=== PATIENT | male | born 1980 | race Caucasian/White ===

== ENCOUNTER 2020-02-23 06:45 | Outpatient (NON) | payer OTHER, SELFPAY ==
[2020-02-23 19:00] LABS: SARS-CoV-2 RNA PCR Positive
== END 2020-02-23 06:46 ==
PROVIDERS: PCP Internal Medicine; Visit Provider Nurse Practitioner
DX: U07.1 COVID-19 (principal)
CPT/HCPCS: 87635; C9803; U0003

== ENCOUNTER 2020-06-06 09:35 | Outpatient (CLI) | payer OTHER, SELFPAY ==
[2020-06-06 09:46] LABS: Basophils Absolute Auto 0.1 K/mm3 (0.0-0.1); Basophils Percent Auto 0.7 % (0.2-1.2); Eosinophils Absolute Auto 0.3 K/mm3 (0-0.3); Eosinophils Percent Auto 3.6 % (0-4.4); Hematocrit 45.2 % (42.0-52.0); Hemoglobin 14.8 g/dL (14.0-18.0); Immature Granulocyte Absolute 0.03 K/mm3 (0.00-0.031); Immature Granulocyte Percent A 0.4 % (0-0.5); Lymphocytes Absolute Auto 3.05 K/mm3 (0.9-3.2); Lymphocytes Percent Auto 42.2 % (18.3-44.2); Mean Corpuscular HGB Conc 32.7 g/dl (32-36); Mean Corpuscular Hemoglobin 29.7 pg (26-34); Mean Corpuscular Volume 90.8 fl (80-100); Mean Platelet Volume 8.4 fl (7.4-10.4); Monocytes Absolute Auto 0.4 K/mm3 (0.1-0.6); Monocytes Percent Auto 5.7 % (2.6-8.5); Neutrophils Absolute Auto 3.4 K/mm3 (1.3-6.7); Neutrophils Percent Auto 47.4 % (45.5-73.1); Platelet Count Result 224 k/mm3 (150-375); Red Blood Count 4.98 M/mm3 (4.6-6.20); Red Cell Distribution Width 13.1 % (11.5-14.5); White Blood Count 7.2 K/mm3 (4.5-10.0)
[2020-06-06 09:58] LABS: Alanine Aminotransferase 36 U/L (4-50); Albumin Level 4.9 g/dL (3.5-5.1); Alkaline Phosphatase 92 U/L (38-126); Anion Gap 10 mmol/L (8-16); Aspartate Amino Transferase 31 U/L (17-59); Bilirubin,Total 0.4 mg/dL (0.2-1.3); Blood Urea Nitrogen 14 mg/dL (9-20); Calcium 9.1 mg/dL (8.4-10.2); Carbon Dioxide 29 mmol/L (22-30); Chloride 101 mmol/L (98-107); Cholesterol 201 mg/dL (0-200); Estimated Glomerular Filt Rate > 60; Glucose 106 mg/dL (75-110); HDL Direct 29 mg/dL; Potassium 4.4 mmol/L (3.4-5.0); Sodium 140 mmol/L (137-145); Triglycerides 351 mg/dL (<150)
[2020-06-06 10:09] LABS: LDL Cholesterol Direct 121 mg/dL
== END 2020-06-06 09:36 | disposition home or self-care (01) ==
PROVIDERS: Family Provider Internal Medicine; PCP Internal Medicine; Visit Provider Internal Medicine
DX: Z13.228 Encounter for screening for other metabolic disorders (principal); Z13.220 Encounter for screening for lipoid disorders
CPT/HCPCS: 36415; 80053; 80061; 85025

== ENCOUNTER 2020-07-18 21:25 | Inpatient (IN) | payer OTHER, SELFPAY ==
[2020-07-18] VITALS (22 sets, daily range): BP systolic 109–172; BP diastolic 76–151; PULSE 105–177; RESP 12–24; O2SAT 97–100
--- NOTE | ~2020-07-18 | XR_ITS ---
EXAMINATION: XR chest 1V portable 07/18/2020 22:03 INDICATION: Tachycardia. PROCEDURE: AP portable chest COMPARISON: No prior studies for comparison. FINDINGS: The lungs are clear. The cardiomediastinal silhouette is within normal limits. There are no pleural effusions. There is no pneumothorax suspected. IMPRESSION: 1: NO ACUTE CARDIOPULMONARY DISEASE. Reviewed, dictated and finalized at location A. [employer]
--- NOTE | 2020-07-18 21:33 | ECG_ITS ---
Measurements Intervals [place] Rate: 155 P: [place]: 0 QRS: 78 QRSD: 105 T: 10 QT: 276 QTc: 443 Interpretive Statements ATRIAL FIBRILLATION WITH RAPID VENTRICULAR RESPONSE BORDERLINE ST-T WAVE ABNORMALITY- INFERIOR LEADS BASELINE ARTIFACT- I, II, V1 ABNORMAL ECG Electronically Signed On 07-19-2020 7:13:18 GRIPPER ATTACHER by Memo Valencia D.O.
--- NOTE | 2020-07-18 21:41 | ED.ARRPALP ---
HPI - Arrhythmia/Palpitations General Chief Complaint: Arrhythmia/Palpitations Stated Complaint: high HR 160 Time Seen by Provider: 07/18/20 21:41 History of Present Illness HPI narrative: 39 yo with no active medical problems presents to the ED for palpitations. About 90 minutes ago his heart suddenlyHe started racing. His apple watch told him he was in atrial fibrillation. No CP, SOB, dizziness. He denies drug use. Related Data Home Medications Medication Instructions Recorded Confirmed No Home Medications 06/13/20 06/13/20 Allergies Allergy/AdvReac Type Severity Reaction Status Date / Time No Known Allergies Allergy Unverified 06/13/20 10:06 Review of Systems Review of Systems: All systems reviewed & are unremarkable except as noted in HPI and below Constitutional: Constitutional: Denies chills and Denies fever(s) Cardiovascular: Cardiovascular: Denies chest pain Respiratory: Respiratory: Denies dyspnea Gastrointestinal: Gastrointestinal: Denies abdominal pain and Denies nausea Neurologic: Denies dizziness, Denies syncope and Denies weakness [facility] Surgical History Surgical History H/O left knee surgery (~05/05/19) H/O vasectomy (~2017) Family History Family History Sibling Hypertension Grandparent Hypertension Social History Social History Smoking status: Never smoker Second hand tobacco smoke exposure: No Alcohol intake: never Substance use: never Substance use type: does not use Gender identity (if verbalized by the patient): Male Spiritual care concerns: No Exam Const: General: healthy appearing, no acute distress and alert Orientation/consciousness: patient oriented x3 HENMT: Head: normal to inspection Neck: Neck: normal visual inspection and no lymphadenopathy Chest: Chest palpation & inspection: no tenderness Resp: Effort & Inspection: normal respiratory effort Auscultation: clear to auscultation bilaterally, no rales, no rhonchi and no wheezes Cardio: Jugular venous distension: no JVD Rate: tachycardic Rhythm: abnormal rhythm irregularly irregular Heart sounds: no murmurs GI: Inspection: non-distended GI Palp: Yes Soft to palpation and No Tenderness to palpation present (GI) Skin: General skin exam: normal color Neuro: General: patient oriented x3, moves all extremities, no focal motor deficits and CN's II-XI intact bilaterally Speech: normal speech Extrem: General: no edema Psych: Appearance: well kempt Affect: normal affect Course Vital Signs Vital signs: Vital Signs Pulse Rate 150 H 07/18/20 21:29 Respiratory Rate 12 07/18/20 21:29 Blood Pressure 136/99 H 07/18/20 21:29 Pulse Oximetry 98 07/18/20 21:29 Temperature 36.3 C L 07/19/20 04:00 Pulse Rate 99 07/19/20 04:09 Respiratory Rate 18 07/19/20 04:00 Blood Pressure 139/78 07/19/20 04:00 Pulse Oximetry 100 07/19/20 04:00 MDM - Arrhythmia/Palpitations MDM Narrative Medical decision making narrative: He had known time of onset, so I was planning to try and get him to convert to sinus and arrange outpatient followup. He failed to convert with amiodarone and metoprolol. I discussed the case with Dr. Ladd. He will admit. Differential Diagnosis Differential diagnosis: Likely artial fibrillation Medical Records Attestation: I reviewed the patient's medical records. Lab Data Attestation: I reviewed the patient's lab results. Result diagrams: 07/18/20 21:44 07/18/20 21:44 Labs: Lab Results 07/18/20 07/18/20 07/18/20 Range/Units 21:44 21:44 21:44 WBC 10.4 H (4.5-10.0) K/mm3 RBC 5.24 (4.6-6.20) M/mm3 Hgb 15.7 (14.0-18.0) g/dL Hct 47.2 (42.0-52.0) % MCV 90.1 (80-100) fl MCH 30.0 (26-34) pg MCHC 33.3 (32-36) g/dl RDW 13
[2020-07-18 21:49] LABS: Basophils Absolute Auto 0.1 K/mm3 (0.0-0.1); Basophils Percent Auto 0.5 % (0.2-1.2); Eosinophils Absolute Auto 0.4 K/mm3 (0-0.3); Eosinophils Percent Auto 3.5 % (0-4.4); Hematocrit 47.2 % (42.0-52.0); Hemoglobin 15.7 g/dL (14.0-18.0); Immature Granulocyte Absolute 0.04 K/mm3 (0.00-0.031); Immature Granulocyte Percent A 0.4 % (0-0.5); Lymphocytes Absolute Auto 4.41 K/mm3 (0.9-3.2); Lymphocytes Percent Auto 42.3 % (18.3-44.2); Mean Corpuscular HGB Conc 33.3 g/dl (32-36); Mean Corpuscular Volume 90.1 fl (80-100); Mean Platelet Volume 8.9 fl (7.4-10.4); Monocytes Absolute Auto 0.7 K/mm3 (0.1-0.6); Neutrophils Absolute Auto 4.8 K/mm3 (1.3-6.7); Neutrophils Percent Auto 46.3 % (45.5-73.1); Platelet Count Result 275 k/mm3 (150-375); Red Blood Count 5.24 M/mm3 (4.6-6.20); Red Cell Distribution Width 13.1 % (11.5-14.5); White Blood Count 10.4 K/mm3 (4.5-10.0)
[2020-07-18] MEDS: AMIODARONE 150 MG/D5W 100 ML 150 MG/100 ML BAG 600 MG IV CONT (21:59)
[2020-07-18] MEDS: LORazepam INJ (*CRX) 2 MG/ML VIAL 0.5 MG IV PUSH (22:01)
[2020-07-18 22:04] LABS: Anion Gap 11 mmol/L (8-16); Blood Urea Nitrogen 17 mg/dL (9-20); Calcium 9.6 mg/dL (8.4-10.2); Carbon Dioxide 30 mmol/L (22-30); Chloride 102 mmol/L (98-107); Estimated CRCL calculation 92 ml/min; Estimated Glomerular Filt Rate > 60; Glucose 107 mg/dL (75-110); Sodium 143 mmol/L (137-145)
[2020-07-18 22:16] LABS: Troponin I < 0.012 ng/mL (0.000-0.034)
[2020-07-18 22:21] LABS: INR 0.9; Prothrombin Time 12.6 Seconds (11.1-14.7)
[2020-07-18 22:22] LABS: Partial Thromboplastin Time 30.7 SECONDS (22.3-36.8)
[2020-07-18] MEDS: AMIODARONE 360 MG/D5W 200 ML 360 MG/200 ML BAG 33.33 MG IV CONT (22:22)
[2020-07-18] MEDS: METOPROLOL TARTRATE INJ 5 MG/5 ML VIAL IV PUSH (23:06)
[2020-07-19] VITALS (32 sets, daily range): BP systolic 112–139; BP diastolic 74–96; PULSE 63–129; RESP 14–24; TEMP 36.2–36.9; O2SAT 93–100; BMI 32.5
[2020-07-19 01:54] LABS: Troponin I < 0.012 ng/mL (0.000-0.034)
[2020-07-19 03:57] LABS: Troponin I < 0.012 ng/mL (0.000-0.034)
[2020-07-19] MEDS: AMIODARONE 360 MG/D5W 200 ML 360 MG/200 ML BAG 16.67 MG IV CONT (04:09)
--- NOTE | 2020-07-19 04:27 | ADMGEN ---
This patient, Brock Ybarra, was admitted to IMU Room 212-01 at 0220 from the Emergency Department. Report given by BIRGIT Hutchinson. Patient/family oriented to hospital policies and general routines including ID bracelet, bed and alarms, visiting hours, pain management, procedures, bathroom and other care routines, personal items, smoking policy, room service/diet, and visiting hours. Information on how to activate the Rapid Response Team has been discussed. Patient/Family are encouraged to report perceived risks to care and to ask questions if they do not understand what they are told or what they should do.
--- NOTE | 2020-07-19 10:57 | PM.CNCAR ---
History of Present Illness History of Present Illness Consult date/time: 07/19/20 10:57 Date of consult: 07/19/2020 Reason for consult: Requesting physician: Chief complaint: HPI: Reason For Visit: Atrial fibrillation with RVR Review of Systems Review of Systems: Narrative: General: Negative for fever, chills, fatigue Psychological: Negative for anxiety, depression Ophthalmic: negative for loss of vision ENT: Negative for epistaxis, headaches Allergy and immunology: Negative for hives, nasal congestion Hematologic and lymphatic: Negative for overt bleeding problems Endocrine: Negative for hot flashes, palpitations Respiratory: Negative for cough, hemoptysis Cardiovascular: Negative for chest pain, shortness of breath, leg swelling, palpitations, dizziness, syncope Gastrointestinal: Negative for abdominal pain, nausea, vomiting, hematochezia Musculoskeletal: Negative for myalgia, joint pains Neurological: Negative for weakness Dermatological: Negative for rash, skin discoloration PMFSH Surgical History Surgical History H/O left knee surgery (~05/05/19) H/O vasectomy (~2017) Family History Family History Sibling Hypertension Grandparent Hypertension Social History Social History Smoking status: Never smoker Second hand tobacco smoke exposure: No Alcohol intake: never Substance use: never Substance use type: does not use Gender identity (if verbalized by the patient): Male Spiritual care concerns: No Meds Home Medications and Allergies Home Medications Medication Instructions Recorded Confirmed Type No Home Medications 06/13/20 07/19/20 History Allergies Allergy/AdvReac Type Severity Reaction Status Date / Time No Known Allergies Allergy Unverified 07/19/20 05:55 Vital Signs Vital Signs - 24 hr 07/18/20 21:29 07/18/20 21:38 07/18/20 21:40 Temperature Pulse Rate 150 H 175 H 177 H Respiratory Rate 12 16 21 H Blood Pressure 136/99 H Pulse Oximetry 98 100 98 07/18/20 21:41 07/18/20 21:42 07/18/20 21:45 Temperature Pulse Rate 155 H 174 H 157 H Respiratory Rate 22 H 23 H 18 Blood Pressure 144/122 H 172/151 H Pulse Oximetry 97 100 99 07/18/20 21:46 07/18/20 21:48 07/18/20 21:59 Temperature Pulse Rate 160 H 165 H 171 H Respiratory Rate 24 H 21 H Blood Pressure 158/120 H 136/99 H 136/99 H Pulse Oximetry 99 97 07/18/20 22:08 07/18/20 22:15 07/18/20 22:22 Temperature Pulse Rate 132 H 160 H 148 H Respiratory Rate 20 22 H Blood Pressure 133/103 H Pulse Oximetry 98 98 07/18/20 22:35 07/18/20 22:46 07/18/20 22:47 Temperature Pulse Rate 150 H 149 H 149 H Respiratory Rate 17 20 20 Blood Pressure 141/82 H Pulse Oximetry 97 98 97 07/18/20 23:06 07/18/20 23:08 07/18/20 23:15 Temperature Pulse Rate 125 H 124 H 115 H Respiratory Rate 19 22 H Blood Pressure Pulse Oximetry 98 97 07/18/20 23:16 07/18/20 23:30 07/18/20 23:31 Temperature Pulse Rate 105 H 114 H 120 H Respiratory Rate 21 H 18 19 Blood Pressure 109/76 122/83 Pulse Oximetry 98 99 98 07/18/20 23:45 07/19/20 00:00 07/19/20 00:01 Temperature Pulse Rate 112 H 118 H 113 H Respiratory Rate 16 16 21 H Blood Pressure 127/91 H Pulse Oximetry 99 99 98 07/19/20 00:15 07/19/20 00:16 07/19/20 00:36 Temperature Pulse Rate 116 H 117 H 128 H Respiratory Rate 16 20 20 Blood Pressure 112/74 Pulse Oximetry 99 98 98 07/19/20 00:45 07/19/20 00:46 07/19/20 01:11 Temperature Pulse Rate 104 H 120 H 116 H Respiratory Rate 18 20 20 Blood Pressure 127/77 Pulse Oximetry 97 99 98 07/19/20 01:30 07/19/20 01:31 07/19/20 02:03 Temperature Pulse Rate 126 H 107 H Respiratory Rate 14 24 H 16 Blood Pressure 113/82 112/80 Pulse Oximetry 99 98 93 07/19/20 02:26 07/19/20 0
--- NOTE | 2020-07-19 11:00 | PM.IMHP ---
H&P: HPI History of Present Illness Date/Time: 07/19/20 11:00 Date of service: 07/19/2020 Chief complaint: HPI: 39-year-old male with no known prior cardiac history presented to [facility] on 07/18/2020 complains of palpitations. Patient states that he had sudden onset of palpitations last night between 730-830 p.m. patient denied chest pain, shortness of breath, syncope. He had mild dizziness during the episode of palpitations. In the ER, his EKG on my personal evaluation showed atrial fibrillation with RVR, heart rate 155 beats per minute. Serial troponins are negative. Chest x-ray unremarkable. Patient has been initiated on amiodarone, and currently he remains in atrial fibrillation with ventricular rate in 120s. Chief Complaint: Palpitations Narrative: Brock Ybarra is a 39 year old male Review of Systems Review of Systems: Narrative: General: Negative for fever, chills, fatigue Psychological: Negative for anxiety, depression Ophthalmic: negative for loss of vision ENT: Negative for epistaxis, headaches Allergy and immunology: Negative for hives, nasal congestion Hematologic and lymphatic: Negative for overt bleeding problems Endocrine: Negative for hot flashes, palpitations Respiratory: Negative for cough, hemoptysis Cardiovascular: Negative for chest pain, positive for palpitations Gastrointestinal: Negative for abdominal pain, nausea, vomiting, hematochezia Musculoskeletal: Negative for myalgia, joint pains Neurological: Negative for weakness Dermatological: Negative for rash, skin discoloration PMFSH Surgical History Surgical History H/O left knee surgery (~05/05/19) H/O vasectomy (~2017) Family History Family History Sibling Hypertension Grandparent Hypertension Social History Social History Smoking status: Never smoker Second hand tobacco smoke exposure: No Alcohol intake: never Substance use: never Substance use type: does not use Gender identity (if verbalized by the patient): Male Spiritual care concerns: No Meds Home Medications and Allergies Home Medications Medication Instructions Recorded Confirmed Type No Home Medications 06/13/20 07/19/20 History Allergies Allergy/AdvReac Type Severity Reaction Status Date / Time No Known Allergies Allergy Unverified 07/19/20 05:55 Vital Signs Vital Signs - 24 hr 07/18/20 21:29 07/18/20 21:38 07/18/20 21:40 Temperature Pulse Rate 150 H 175 H 177 H Respiratory Rate 12 16 21 H Blood Pressure 136/99 H Pulse Oximetry 98 100 98 07/18/20 21:41 07/18/20 21:42 07/18/20 21:45 Temperature Pulse Rate 155 H 174 H 157 H Respiratory Rate 22 H 23 H 18 Blood Pressure 144/122 H 172/151 H Pulse Oximetry 97 100 99 07/18/20 21:46 07/18/20 21:48 07/18/20 21:59 Temperature Pulse Rate 160 H 165 H 171 H Respiratory Rate 24 H 21 H Blood Pressure 158/120 H 136/99 H 136/99 H Pulse Oximetry 99 97 07/18/20 22:08 07/18/20 22:15 07/18/20 22:22 Temperature Pulse Rate 132 H 160 H 148 H Respiratory Rate 20 22 H Blood Pressure 133/103 H Pulse Oximetry 98 98 07/18/20 22:35 07/18/20 22:46 07/18/20 22:47 Temperature Pulse Rate 150 H 149 H 149 H Respiratory Rate 17 20 20 Blood Pressure 141/82 H Pulse Oximetry 97 98 97 07/18/20 23:06 07/18/20 23:08 07/18/20 23:15 Temperature Pulse Rate 125 H 124 H 115 H Respiratory Rate 19 22 H Blood Pressure Pulse Oximetry 98 97 07/18/20 23:16 07/18/20 23:30 07/18/20 23:31 Temperature Pulse Rate 105 H 114 H 120 H Respiratory Rate 21 H 18 19 Blood Pressure 109/76 122/83 Pulse Oximetry 98 99 98 07/18/20 23:45 07/19/20 00:00 07/19/20 00:01 Temperature Pulse Rate 112 H 118 H 113 H Respiratory Rate 16 16 21 H Blood Pressure 127/91 H Pulse Oximetry 99 99 98 0
--- NOTE | 2020-07-19 11:25 | WPDMODSED ---
Moderate Sedation Note-Pt Data Patient Data Allergies Allergy/AdvReac Type Severity Reaction Status Date / Time No Known Allergies Allergy Unverified 07/19/20 05:55 Home Medications Medication Instructions Recorded Confirmed Type No Home Medications 06/13/20 07/19/20 History Current Medications: Active Medications Amiodarone HCl/Dextrose (Nexterone 360 Mg/D5w 200 Ml) 360 mg in 200 mls @ 16.667 mls/hr IV CONT .Q12H BASSEM Last Admin: 07/19/20 04:09 Dose: 0.5 mg/min, 16.67 mls/hr Documented by: Sedation/Anesthesia: No previous sedation/anesthesia problems (including family history). [facility] Surgical History Surgical History H/O left knee surgery (~05/05/19) H/O vasectomy (~2017) Family History Family History Sibling Hypertension Grandparent Hypertension Social History Social History Smoking status: Never smoker Second hand tobacco smoke exposure: No Alcohol intake: never Substance use: never Substance use type: does not use Gender identity (if verbalized by the patient): Male Spiritual care concerns: No Mod Sed Physical Exam Physical Exam Pre Procedural Exam: Normal: Airway Hours since solid foods: 10 Hours since liquid intake: 10 Internal Medicine - PN: Obj Da Vital Signs Vital Signs: Vital Signs - 24 hr 07/18/20 21:29 07/18/20 21:38 07/18/20 21:40 Temperature Pulse Rate 150 H 175 H 177 H Respiratory Rate 12 16 21 H Blood Pressure 136/99 H Pulse Oximetry 98 100 98 07/18/20 21:41 07/18/20 21:42 07/18/20 21:45 Temperature Pulse Rate 155 H 174 H 157 H Respiratory Rate 22 H 23 H 18 Blood Pressure 144/122 H 172/151 H Pulse Oximetry 97 100 99 07/18/20 21:46 07/18/20 21:48 07/18/20 21:59 Temperature Pulse Rate 160 H 165 H 171 H Respiratory Rate 24 H 21 H Blood Pressure 158/120 H 136/99 H 136/99 H Pulse Oximetry 99 97 07/18/20 22:08 07/18/20 22:15 07/18/20 22:22 Temperature Pulse Rate 132 H 160 H 148 H Respiratory Rate 20 22 H Blood Pressure 133/103 H Pulse Oximetry 98 98 07/18/20 22:35 07/18/20 22:46 07/18/20 22:47 Temperature Pulse Rate 150 H 149 H 149 H Respiratory Rate 17 20 20 Blood Pressure 141/82 H Pulse Oximetry 97 98 97 07/18/20 23:06 07/18/20 23:08 07/18/20 23:15 Temperature Pulse Rate 125 H 124 H 115 H Respiratory Rate 19 22 H Blood Pressure Pulse Oximetry 98 97 07/18/20 23:16 07/18/20 23:30 07/18/20 23:31 Temperature Pulse Rate 105 H 114 H 120 H Respiratory Rate 21 H 18 19 Blood Pressure 109/76 122/83 Pulse Oximetry 98 99 98 07/18/20 23:45 07/19/20 00:00 07/19/20 00:01 Temperature Pulse Rate 112 H 118 H 113 H Respiratory Rate 16 16 21 H Blood Pressure 127/91 H Pulse Oximetry 99 99 98 07/19/20 00:15 07/19/20 00:16 07/19/20 00:36 Temperature Pulse Rate 116 H 117 H 128 H Respiratory Rate 16 20 20 Blood Pressure 112/74 Pulse Oximetry 99 98 98 07/19/20 00:45 07/19/20 00:46 07/19/20 01:11 Temperature Pulse Rate 104 H 120 H 116 H Respiratory Rate 18 20 20 Blood Pressure 127/77 Pulse Oximetry 97 99 98 07/19/20 01:30 07/19/20 01:31 07/19/20 02:03 Temperature Pulse Rate 126 H 107 H Respiratory Rate 14 24 H 16 Blood Pressure 113/82 112/80 Pulse Oximetry 99 98 93 07/19/20 02:26 07/19/20 02:30 07/19/20 04:00 Temperature 36.3 C L 36.3 C L Pulse Rate 114 H 63 99 Respiratory Rate 18 18 Blood Pressure 139/87 139/78 Pulse Oximetry 100 100 07/19/20 04:08 07/19/20 04:09 07/19/20 05:51 Temperature Pulse Rate 128 H 99 101 H Respiratory Rate 18 Blood Pressure Pulse Oximetry 99 07/19/20 06:00 07/19/20 08:00 07/19/20 08:16 Temperature 36.4 C L Pulse Rate 99 124 H 120 H Respiratory Rate 21 H Blood Pressure 139/78 Pulse Oximetry 100 07/19/20 10:00 Temperature
[2020-07-19] MEDS: ENOXAPARIN 120 MG/0.8 ML SYRINGE 110 MG SUB-Q (11:27)
--- NOTE | 2020-07-19 11:30 | PC.NURSE ---
Patient to [facility] for Cardioversion via bed.
--- NOTE | 2020-07-19 12:00 | ECG_ITS ---
Measurements Intervals [place] Rate: 87 P: 45 [place]: 145 QRS: 75 QRSD: 122 T: 51 QT: 362 QTc: 436 Interpretive Statements SINUS RHYTHM POSSIBLE LEFT ATRIAL ENLARGEMENT INCOMPLETE RIGHT BUNDLE BRANCH BLOCK NONSPECIFIC T-WAVE ABNORMALITY- INFERIOR LEADS BASELINE ARTIFACT- II, III, AVR, AVL, AVF, V3-V4 BORDERLINE ECG Electronically Signed On 07-19-2020 12:09:06 PROJECT BUILDER by Memo Valencia D.O.
--- NOTE | 2020-07-19 12:11 | P.PCNCVR_ITS ---
Cardioversion Cardioversion Date of procedure: 07/19/20 Description of procedure: DATE OF PROCEDURE: 07/19/2020 INDICATION FOR PROCEDURE: Atrial fibrillation with rapid ventricular response BRIEF CLINICAL HISTORY:39-year-old male with no known prior cardiac history presented to the hospital with sudden onset of palpitations that started last night. His EKG showed atrial fibrillation with RVR with heart rates in 150s. He has been on amiodarone and remains in atrial fibrillation with RVR. Management options were discussed with the patient, and he was willing to proceed with DC cardioversion to restore sinus rhythm. Informed consent was taken prior to the procedure. PROCEDURES PERFORMED: 1. Successful synchronized DC cardioversion with yazdanism of sinus rhythm 2. Moderate sedation -CPT 26276 SEDATION: Propofol 110 mg IV in divided doses; start time 1155, stop time 1210; total [id number] time 15 minutes; Yocasta Fraga RN was trained observer for the moderate sedation. PROCEDURE: Informed consent was taken prior to the procedure. Transcutaneous pads were placed in the right parasternal and left paravertebral positions. After adequate conscious sedation with IV propofol in divided doses, synchronized DC cardioversion was performed with 200 joules x1 with yazdanism of sinus rhythm. Postprocedure EKG showed sinus rhythm. Patient tolerated procedure well without any immediate procedure related complications. CONCLUSIONS: Successful synchronized DC cardioversion patient sinus rhythm. RECOMMENDATIONS: Patient will be continued on IV amiodarone for next few hours, and will be discharged home later today if clinically stable. He will be initiated on 1 of the DOACs for about 4 weeks, or no longer if necessary based on patient's CVA risk profile. Echocardiogram with Doppler will be performed as an outpatient.
--- NOTE | 2020-07-19 12:20 | PM.DS ---
DS: Admitting Diagnosis Admitting Diagnosis Admitting Diagnosis: Atrial fibrillation with RVR DS: Summary Hospital Course Reason for hospitalization: Atrial fibrillation with RVR Hospital Course: 39-year-old male with no known prior cardiac history presented to the hospital with sudden onset of palpitations that started last night. His EKG showed atrial fibrillation with RVR with heart rates in 150s. He was initiated on amiodarone and remained in atrial fibrillation with RVR. Management options were discussed with the patient, and he was willing to proceed with DC cardioversion to restore sinus rhythm. Patient underwent successful DC cardioversion with sikhism of sinus rhythm. He was given therapeutic dose of low molecular weight heparin prior to the cardioversion. Patient will be discharged home on rivaroxaban 20 mg p.o. Q evening meal. Status at Discharge Cognitive/behavioral status at discharge: Patient will be observed for next few hours post sedation prior to discharge today if clinically stable Overall status at discharge: other (No driving today) Time Spent with Patient Time attestation: Total time spent providing and/or coordinating discharge services:35 minutes Specific discharge activities: No driving today DS: Data Data Completed and Pending Labs on day of discharge: Labs from last 24 hours 07/19/20 07/19/20 07/19/20 11:29 03:25 01:04 WBC RBC Hgb Hct MCV MCH MCHC RDW Plt Count MPV Immature Gran % (Auto) Neut % (Auto) Lymph % (Auto) [place]ett % (Auto) Eos % (Auto) Baso % (Auto) Lymph # (Auto) [place] # (Auto) Eos # (Auto) Baso # (Auto) Abs Immat Gran (auto) Absolute Neuts (auto) Absolute Nucleated RBC Nucleated RBC % PT INR APTT Sodium Potassium Chloride Carbon Dioxide Anion Gap BUN Creatinine Estim Creat Clear Calc Estimated GFR Glucose Calcium Troponin I < 0.012 < 0.012 TSH (Reflex) Pending 07/18/20 07/18/20 07/18/20 21:44 21:44 21:44 WBC 10.4 H RBC 5.24 Hgb 15.7 Hct 47.2 MCV 90.1 MCH 30.0 MCHC 33.3 RDW 13.1 Plt Count 275 MPV 8.9 Immature Gran % (Auto) 0.4 Neut % (Auto) 46.3 Lymph % (Auto) 42.3 [place]ett % (Auto) 7.0 Eos % (Auto) 3.5 Baso % (Auto) 0.5 Lymph # (Auto) 4.41 H Pickett # (Auto) 0.7 H Eos # (Auto) 0.4 H Baso # (Auto) 0.1 Abs Immat Gran (auto) 0.04 H Absolute Neuts (auto) 4.8 Absolute Nucleated RBC 0.0 Nucleated RBC % 0.0 PT 12.6 INR 0.9 APTT 30.7 Sodium 143 Potassium 4.0 Chloride 102 Carbon Dioxide 30 Anion Gap 11 BUN 17 Creatinine 1.30 Estim Creat Clear Calc 92 Estimated GFR > 60 Glucose 107 Calcium 9.6 Troponin I < 0.012 TSH (Reflex) Discharge Plan Discharge Attending physician on discharge: Wyatt Alvarez Discharging Clinician: Wyatt Alvarez Anticipated Discharge Date/Time: 07/19/20 17:00 Patient Disposition: Home, Self-Care Activity: no driving Diet: heart healthy Patient Instructions: Antibiotic Form Stand Alone Forms: General Discharge Information Follow-up/Referrals: Wyatt Alvarez MD [Physician] - Discharge Medications: New rivaroxaban 20 mg tablet 20 mg PO QPM Qty: 30 RF: 1 No Action No Home Medications RF: 0 Date of admission: 07/19/20 00:35 Primary Care Provider: Avel Messina Admitting Provider: Trever Ladd Attending physician on admission: Trever Ladd Condition: Improved
--- NOTE | 2020-07-19 13:09 | PC.NURSE ---
Patient returned to room following cardioversion. Report received from BIRGIT Pack.
[2020-07-19 13:25] LABS: Free T4 Free Thyroxine Reflex 0.91 ng/dL (0.78-2.19)
[2020-07-19 14:13] LABS: Total Triiodothyronine (T3) 1.27 NG/ML (0.97-1.69)
== END 2020-07-19 16:22 | disposition home or self-care (01) | DRG 310 ==
LOC: ANHED 22:03 → ANHIMU 07-19 11:17
PROVIDERS: Admitting Provider Internal Medicine Cardiovascular Disease; Emergency Provider Emergency Medicine; PCP Internal Medicine; Visit Provider Internal Medicine Cardiovascular Disease
PROC: 5A2204Z Restoration of Cardiac Rhythm, Single (ICD-10-PCS; principal; 2020-07-19 11:30)
DX: I48.20 Chronic atrial fibrillation, unspecified (principal)
CPT/HCPCS: 36415; 71045; 80048; 84439; 84443; 84480; 84484; 85025; 85610; 85730; 92960; 93005; 96365; 96366; 96375; 99285; J0282; J1650; J2060; J2704; J7040

== ENCOUNTER 2021-11-17 07:01 | Outpatient (CLI) | payer OTHER, SELFPAY ==
[2021-11-17 07:55] LABS: Basophils Percent Auto 0.6 % (0.2-1.2); Eosinophils Absolute Auto 0.2 K/mm3 (0-0.3); Eosinophils Percent Auto 2.8 % (0-4.4); Hematocrit 43.9 % (42.0-52.0); Hemoglobin 13.7 g/dL (14.0-18.0); Immature Granulocyte Absolute 0.02 K/mm3 (0.00-0.031); Immature Granulocyte Percent A 0.3 % (0-0.5); Lymphocytes Absolute Auto 2.62 K/mm3 (0.9-3.2); Lymphocytes Percent Auto 36.8 % (18.3-44.2); Mean Corpuscular HGB Conc 31.2 g/dl (32-36); Mean Corpuscular Hemoglobin 28.9 pg (26-34); Mean Corpuscular Volume 92.6 fl (80-100); Mean Platelet Volume 9.3 fl (7.4-10.4); Monocytes Absolute Auto 0.5 K/mm3 (0.1-0.6); Monocytes Percent Auto 6.5 % (2.6-8.5); Neutrophils Absolute Auto 3.8 K/mm3 (1.3-6.7); Platelet Count Result 239 k/mm3 (150-375); Red Blood Count 4.74 M/mm3 (4.6-6.20); Red Cell Distribution Width 13.1 % (11.5-14.5); White Blood Count 7.1 K/mm3 (4.5-10.0)
[2021-11-17 08:06] LABS: Alanine Aminotransferase 33 U/L (6-50); Alkaline Phosphatase 98 U/L (38-126); Anion Gap 9 mmol/L (8-16); Aspartate Amino Transferase 26 U/L (17-59); Bilirubin,Total 0.3 mg/dL (0.2-1.3); Blood Urea Nitrogen 18 mg/dL (9-20); Carbon Dioxide 27 mmol/L (22-30); Chloride 105 mmol/L (98-107); Cholesterol 178 mg/dL (0-200); Estimated Glomerular Filt Rate > 60; Glucose 101 mg/dL (65-110); HDL Direct 26 mg/dL; Potassium 4.3 mmol/L (3.4-5.0); Sodium 141 mmol/L (137-145); Triglycerides 148 mg/dL (<150)
[2021-11-17 08:17] LABS: LDL Cholesterol Direct 114 mg/dL
== END 2021-11-17 07:02 | disposition home or self-care (01) ==
LOC: ANHLAB 07:02
PROVIDERS: PCP Internal Medicine; Visit Provider Clinical Nurse Specialist
DX: Z13.220 Encounter for screening for lipoid disorders (principal); I48.91 Unspecified atrial fibrillation; Z13.228 Encounter for screening for other metabolic disorders
CPT/HCPCS: 36415; 80053; 80061; 84443; 85025

== ENCOUNTER 2021-11-21 10:33 | Outpatient (CLI) | payer OTHER, SELFPAY ==
--- NOTE | ~2021-11-21 | US_ITS ---
EXAMINATION: US right upper quadrant DATE: 11/21/2021 11:03 INDICATION: Right upper quadrant pain TECHNIQUE: Multiple grayscale and Doppler ultrasound images of the abdomen were obtained. COMPARISON: None available FINDINGS: All gas obscures visualization of the pancreas. The liver demonstrates increased echogenici ty, heterogenous echotexture, and decreased through transmission. A hypoechoic area of the liver at t he gallbladder fossa likely represents focal fatty sparing. No surface nodularity. Normal hepatopetal flow in the main portal vein. An 8 mm polyp is noted in the gallbladder. There is no pericholecystic fluid or gallbladder wall thickening. The normal common bile duct measures 5 mm. There was no sonogr aphic Samuels sign. IMPRESSION: 1. No sonographic correlate for the patient's symptoms. 2. 8 mm gallbladder polyp which may be benign polyp, adenoma, or small cancer. Follow-up ultrasound i n one year is recommended. Reviewed, dictated and finalized at location A. IMPRESSION: 1. No sonographic correlate for the patient's symptoms. 2. 8 mm gallbladder polyp which may be benign polyp, adenoma, or small cancer. Follow-up ultrasound in one year is recommended.
== END 2021-11-21 10:34 | disposition home or self-care (01) ==
PROVIDERS: PCP Internal Medicine; Visit Provider Clinical Nurse Specialist
DX: R10.11 Right upper quadrant pain (principal); K82.4 Cholesterolosis of gallbladder
CPT/HCPCS: 76705

== ENCOUNTER 2021-12-29 00:37 | Day surgery (SDC) | payer OTHER, SELFPAY ==
[2021-12-25 13:47] VITALS: BMI 33.3
--- NOTE | 2021-12-25 13:51 | PC.NURSE ---
Report to the Outpatient Waiting Room, entrance under the green pavilion located off [facility], at time _1100_ on date _[id number]_. OR Time: _1pm_. - You and your visitor will be asked to self-screen and do not enter if you have any COVID symptoms. - Only one visitor and NO children visitors are allowed at this time. - The patient visitor is requested to leave or wait in car when not with patient due to restrictions. - A mask is required within the hospital. Patients may have clear liquids (water, carbonated beverages, clear teas, apple juice) until 3 hours prior to surgery with a maximum of 20 ounces. - No food from midnight until time of surgery Take the following medications with a SIP of water the morning of surgery: ____None Medications to discontinue per physician __None Date to take last dose Please no make-up, nail venezuelan, hairspray, perfume, deodorant, or body powder the day of surgery. No jewelry (including any body piercings) or valuables the day of surgery, leave them at home. Please take a shower or bath the morning of, surgery with Hebiclense , an antibacterial soap. Wear comfortable, loose fitting clothing. - Jewelry must be removed prior to entering the operating room. Rings and piercings that are not removed may be cut off. - The hospital will not accept responsibility for valuables. - Please leave all valuables, including medications, at home the day of surgery. If you are going home after surgery, a licensed dump truck driver off highway must drive you home. - NO public transportation without another adult. - We recommend that an adult stay with you for 24 hours following discharge. - We also recommend that you do not drive, make important decision, drink alcoholic beverages, or take any drugs that were not prescribed by your health care provider for at least 24 hours after your discharge time. Follow any additional instructions given to you from your surgeon. If you or anyone in your household have experienced Covid symptoms in the past week, please notify your surgeon or the nurse liaison at the phone number below for possible testing. Telephone instructions given to __Patient__and asked if any additional questions and then verbalized understanding. Patient advised to call surgeon office or pre surgery nurse liaison [phone] if any additional questions.
[2021-12-29] VITALS (7 sets, daily range): BP systolic 123–144; BP diastolic 79–89; PULSE 57–94; RESP 16–18; TEMP 36.2–37.1; O2SAT 98–100
[2021-12-29] MEDS: ACETAMINOPHEN 500 MG TABLET 1000 MG PO (12:14)
[2021-12-29] MEDS: KETOROLAC 15 MG/ML VIAL (*BKC) IV PUSH (12:15)
[2021-12-29] MEDS: LACTATED RINGERS 1,000 ML 30 ML IV CONT ×2 (12:15→15:06)
--- NOTE | 2021-12-29 12:43 | WPDHPUPDATE1 ---
History and Physical Update Update Date/Time: 12/29/21 12:43 History and Physical has been reviewed, including an updated exam of the patient. There are NO changes in the patient's condition. Risks, benefits, and alternatives have been discussed and questions answered. Patient agrees to proceed with procedure.
--- NOTE | 2021-12-29 13:00 | WPDANESEPPF ---
Anes - Initial Pre Proc Eval Procedure: Operation Date: 12/29/21 13:00 Proposed Procedures p Laparoscopic Cholecystectomy - Jeffry Moulton MD Date/Time: 12/29/21 13:00 Surgeon: Jeffry Moulton MD Pre Op Diagnosis: chronic cholecystitis Patient Data Age: 41 Gender: M Height: 1.83 m Weight: 111.4 kg Allergies Allergy/AdvReac Type Severity Reaction Status Date / Time No Known Allergies Allergy Verified 12/25/21 13:46 Home Medications Medication Instructions Recorded Confirmed Type aspirin 81 mg tablet,delayed 81 mg PO DAILY 11/14/21 12/25/21 History release Patient hx anesthesia problems: none Family hx anesthesia problems: none Results Review: All pre-operative results and documents have been reviewed as part of the pre-operative evaluation. 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 Gender identity (if verbalized by the patient): Male Sexual Orientation (if Verbalized by the Patient): Straight or Heterosexual Spiritual care concerns: No Anes - Eval Final PreProcedure Day of Procedure 12/29/21 13:00 Patient weight: obese Heart: regular rate and rhythm Lungs: clear to auscultation Airway: Mallampati scale class II Neurological: alert and oriented Last oral intake: >/= 8 hours ASA classification: III Emergent: no Anesthetic plan: proceed Anesthesia type and monitoring: general ETT and standard monitoring Results Review: All pre-operative results and documents have been reviewed as part of the pre-operative evaluation. Informed Consent: The patient's anesthetic plan and its attendant risks and benefits were discussed with the patient/family/POA. Questions were solicited and answers provided to the satisfaction of the patient/family/POA.
[2021-12-29] MEDS: ceFAZolin 2 GM/D5W 50 ML 2 GM/50 ML BAG IVPB (13:46)
[2021-12-29] MEDS: BUPIVACAINE/EPINEPHRINE 0.25% 50 ML VIAL INFILTRATE (14:00)
--- NOTE | 2021-12-29 14:56 | W.PM.PROC2 ---
Procedure Note - Detailed Date of Procedure 12/29/21 Pre-op Diagnosis chronic cholecystitis, gallbladder polyp Post-op Diagnosis Same Procedure Performed Laparoscopic cholecystectomy Surgeon Jeffry Moulton MD Director Of Strategic Marketing Denise HORTAA Anesthesia General and Local (0.25% bupivacaine with epinephrine) Indications Patient has had postprandial epigastric abdominal pain. He is known to have an 8 mm gallbladder polyp by ultrasound. He is taken to surgery now for laparoscopic cholecystectomy. Findings Mild chronic inflammation was noted. No stones were apparent. No biliary ductal dilatation was seen. Liver appeared normal. Description of Procedure Patient was taken to surgery and induced into general anesthesia. The abdomen is prepped and draped. Trocars were placed in the usual fashion using applied Medical optical trocars and local anesthetic. Once the abdomen was insufflated, the gallbladder was taken down from some omental adhesions. A laparoscopic aspirator was used and the gallbladder was decompressed. A Vicryl endoloop was used to close the cholecystotomy. There was no leakage of bile throughout the surgery. The gallbladder was then freed from the remaining adhesions and retracted anterosuperiorly. Dissection was carried out in the cholecystohepatic triangle. The cystic duct and cystic artery were dissected out very clearly. The gallbladder was dissected off the liver at its lower 3rd. Critical view was achieved. We securely clipped and divided the cystic duct and cystic artery. The gallbladder was then further dissected free of its remaining peritoneal attachments to the liver. Once it was completely freed from the liver, it was placed in an Endo-Catch bag and retrieved through the 10 11 epigastric trocar site. I replaced the epigastric trocar and we reviewed the right upper quadrant and gallbladder fossa. It was irrigated and suctioned. A small area of bleeding on 1 of the omental adhesions was cauterized and made hemostatic. The rest of the areas of dissection all looked quite good. There was no evidence of bile leak or bleeding. We then used the Bryson cone and Bryosn-Brittany suture Passer device. An 0 Vicryl was used to close the fascia at the epigastric trocar site. We then evacuated CO2 and removed the trocar sleeves. Skin wounds were closed with subcuticular 4-0 Monocryl skin suture. The wounds were dressed with Exofin surgical adhesive. Patient was awakened and taken to recovery in good condition. Sponge and needle counts were correct x2. Estimated Blood Loss -5 Drains No Packing No Pathology Yes (Gallbladder) Complications No immediate complications Condition Stable Disposition PACU [facility] Billing Surgery - Charge Forward: Surgery Billing (Laparoscopic cholecystectomy)
[2021-12-29] MEDS: oxyCODONE HCL (*CRX) 5 MG TAB IR PO (16:07)
== END 2021-12-29 16:35 | disposition home or self-care (01) ==
PROVIDERS: PCP Internal Medicine; Visit Provider Surgery
PROC: 0FT44ZZ Resection of Gallbladder, Percutaneous Endoscopic Approach (ICD-10-PCS; CPT 47562; principal; 2021-12-29 13:00)
DX: K81.1 Chronic cholecystitis (principal); R10.13 Epigastric pain; E66.9 Obesity, unspecified; Z68.33 Body mass index [BMI] 33.0-33.9, adult; Z79.82 Long term (current) use of aspirin
CPT/HCPCS: 47562; 36415; 80076; 82150; 83690; 86850; 86900; 86901; 88304; A9270; C1713; J0690; J1100; J1885; J2250; J2405; J2704; J2710; J3010; J7030; J7120

== ENCOUNTER 2021-12-29 11:05 | Outpatient (CLI) | payer OTHER, SELFPAY ==
[2021-12-28 16:08] LABS: Alanine Aminotransferase 24 U/L (6-50); Albumin Level 5.2 g/dL (3.5-5.1); Alkaline Phosphatase 97 U/L (38-126); Amylase 59 U/L (30-110); Aspartate Amino Transferase 26 U/L (17-59); Bilirubin,Total 0.3 mg/dL (0.2-1.3); Lipase 94 U/L (23-300)
== END 2021-12-29 11:06 | disposition home or self-care (01) ==
LOC: ANHSURGERY 11:06
PROVIDERS: PCP Internal Medicine; Visit Provider Surgery
DX: Z01.812 Encounter for preprocedural laboratory examination (principal); K81.1 Chronic cholecystitis
CPT/HCPCS: 36415; 80076; 82150; 83690; 86850; 86900; 86901

== ENCOUNTER 2022-01-11 14:14 | Outpatient (CLI) | payer OTHER, SELFPAY ==
[2022-01-11 19:49] LABS: Alanine Aminotransferase 23 U/L (6-50); Albumin Level 5.2 g/dL (3.5-5.1); Alkaline Phosphatase 111 U/L (38-126); Anion Gap 17 mmol/L (8-16); Aspartate Amino Transferase 29 U/L (17-59); Bilirubin,Total 0.3 mg/dL (0.2-1.3); Blood Urea Nitrogen 17 mg/dL (9-20); Calcium 9.9 mg/dL (8.4-10.2); Carbon Dioxide 25 mmol/L (22-30); Chloride 100 mmol/L (98-107); Estimated Glomerular Filt Rate > 60; Glucose 89 mg/dL (65-110); Potassium 4.1 mmol/L (3.4-5.0); Sodium 142 mmol/L (137-145)
== END 2022-01-11 14:15 | disposition home or self-care (01) ==
LOC: ANHGOSHLAB 14:17
PROVIDERS: PCP Internal Medicine; Visit Provider Clinical Nurse Specialist
DX: K21.9 Gastro-esophageal reflux disease without esophagitis (principal)
CPT/HCPCS: 36415; 80053

== ENCOUNTER 2022-02-07 00:11 | Day surgery (SDC) | payer OTHER, SELFPAY ==
[2022-01-25 09:06] VITALS: BMI 33.3
[2022-02-07 09:58] VITALS: BP 130/84; PULSE 67; RESP 18; TEMP 36.2; O2SAT 100; BMI 33.7
[2022-02-07] MEDS: LACTATED RINGERS 1,000 ML 150 ML IV CONT (10:27)
--- NOTE | 2022-02-07 11:04 | WPDANESEPPF ---
Anes - Initial Pre Proc Eval Procedure: Operation Date: 02/07/22 11:30 Proposed Procedures p Esophagogastroduodenoscopy - Bonifacio Tobias MD Date/Time: 02/07/22 11:04 Surgeon: Bonifacio Tobias MD Pre Op Diagnosis: chest pain, Dysphagia Patient Data Age: 41 Gender: M Height: 1.83 m Weight: 113 kg Last Vital Signs Temp 97.1 F L 02/07/22 09:58 Pulse 67 02/07/22 09:58 Resp 18 02/07/22 09:58 BP 130/84 02/07/22 09:58 Pulse Ox 100 02/07/22 09:58 O2 Del Method Room Air 02/07/22 09:58 Allergies Allergy/AdvReac Type Severity Reaction Status Date / Time No Known Allergies Allergy Verified 02/07/22 10:11 Home Medications Medication Instructions Recorded Confirmed Type aspirin 81 mg tablet,delayed 81 mg PO DAILY 11/14/21 02/07/22 History release lansoprazole 30 mg capsule,delayed 30 mg PO DAILY #30 caps 01/18/22 02/07/22 Rx release (Prevacid) Patient hx anesthesia problems: none Family hx anesthesia problems: none Results Review: All pre-operative results and documents have been reviewed as part of the pre-operative evaluation. [facility] Past Medical History Medical History (Updated 01/18/22 @ 10:56 by Sarah Ventura, FAWAD) Chest pressure Colon cancer screening Dysphagia Globus sensation Obesity Surgical History Surgical History H/O left knee surgery (~05/05/19) H/O vasectomy (~2017) Hx laparoscopic cholecystectomy 12/29/21 Hx of wisdom tooth extraction Family History Family History Sibling Hypertension Grandparent Hypertension Social History Social History Social History: daily caffeine use- 1-3 cups of coffee/tea per day Smoking status: Never smoker Second hand tobacco smoke exposure: No Alcohol intake: current Alcohol use details: SOCIALLY Substance use: never Substance use type: does not use Living arrangements: with family Additional living arrangements comments: Patient is and has two children- one male, one female 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 Gender identity (if verbalized by the patient): Male Sexual Orientation (if Verbalized by the Patient): Straight or Heterosexual Spiritual care concerns: No Anes - Eval Final PreProcedure Day of Procedure 02/07/22 11:04 Patient weight: obese Heart: regular rate and rhythm Lungs: clear to auscultation Airway: Mallampati scale class II Neurological: alert and oriented Last oral intake: >/= 8 hours ASA classification: II Emergent: no Anesthetic plan: proceed Anesthesia type and monitoring: general GIVS and standard monitoring Results Review: All pre-operative results and documents have been reviewed as part of the pre-operative evaluation. Informed Consent: The patient's anesthetic plan and its attendant risks and benefits were discussed with the patient/family/POA. Questions were solicited and answers provided to the satisfaction of the patient/family/POA.
--- NOTE | 2022-02-07 11:07 | WPDHPUPDATE1 ---
History and Physical Update Update Date/Time: 02/07/22 11:07 History and Physical has been reviewed, including an updated exam of the patient. There are NO changes in the patient's condition. Risks, benefits, and alternatives have been discussed and questions answered. Patient agrees to proceed with procedure.
[2022-02-07 11:18] VITALS: BP 123/84; PULSE 75; RESP 21; O2SAT 99
[2022-02-07 11:28] VITALS: BP 120/84; PULSE 70; RESP 17; O2SAT 97
[2022-02-07 11:38] VITALS: BP 117/82; PULSE 67; RESP 16; O2SAT 98
== END 2022-02-07 11:46 | disposition home or self-care (01) ==
PROVIDERS: PCP Internal Medicine; Visit Provider Internal Medicine Gastroenterology
PROC: 0DJ08ZZ Inspection of Upper Intestinal Tract, Via Natural or Artificial Opening Endoscopic (ICD-10-PCS; CPT 43235; principal; 2022-02-07 11:30)
DX: K21.9 Gastro-esophageal reflux disease without esophagitis (principal); Z79.82 Long term (current) use of aspirin; E66.9 Obesity, unspecified; Z68.33 Body mass index [BMI] 33.0-33.9, adult
CPT/HCPCS: 43239; 88305; J2704; J3010; J7120

== ENCOUNTER 2022-02-26 09:38 | Outpatient (CLI) | payer OTHER, SELFPAY ==
[2022-02-26 19:52] LABS: Immature Reticulocyte Fraction 24.1 % (3.0-15.9); Reticulocyte Hemoglobin Conten 32.3 pg (28.2-35.7); Reticulocyte Percent 3.21 % (0.7-4.3); Reticulocytes Absolute 0.14 B/L (32.2-175.7)
== END 2022-02-26 09:39 | disposition home or self-care (01) ==
LOC: ANHGOSHLAB 09:39
PROVIDERS: PCP Internal Medicine; Visit Provider Internal Medicine
DX: D64.9 Anemia, unspecified (principal)
CPT/HCPCS: 36415; 85046

== ENCOUNTER 2022-03-08 08:08 | Outpatient (CLI) | payer OTHER, SELFPAY ==
[2022-03-08 18:45] LABS: Basophils Absolute Auto 0.1 K/mm3 (0.0-0.1); Basophils Percent Auto 0.7 % (0.2-1.2); Eosinophils Absolute Auto 0.2 K/mm3 (0-0.3); Eosinophils Percent Auto 2.8 % (0-4.4); Hematocrit 46.2 % (42.0-52.0); Hemoglobin 14.5 g/dL (14.0-18.0); Immature Granulocyte Absolute 0.04 K/mm3 (0.00-0.031); Immature Granulocyte Percent A 0.6 % (0-0.5); Immature Reticulocyte Fraction 20.8 % (3.0-15.9); Lymphocytes Absolute Auto 2.24 K/mm3 (0.9-3.2); Lymphocytes Percent Auto 31.2 % (18.3-44.2); Mean Corpuscular HGB Conc 31.4 g/dl (32-36); Mean Corpuscular Hemoglobin 29.5 pg (26-34); Mean Corpuscular Volume 94.1 fl (80-100); Mean Platelet Volume 8.9 fl (7.4-10.4); Monocytes Absolute Auto 0.4 K/mm3 (0.1-0.6); Neutrophils Absolute Auto 4.2 K/mm3 (1.3-6.7); Neutrophils Percent Auto 58.7 % (45.5-73.1); Platelet Count Result 242 k/mm3 (150-375); Red Blood Count 4.91 M/mm3 (4.6-6.20); Red Cell Distribution Width 14.6 % (11.5-14.5); Reticulocyte Hemoglobin Conten 32.8 pg (28.2-35.7); Reticulocyte Percent 2.85 % (0.7-4.3); Reticulocytes Absolute 0.14 B/L (32.2-175.7); White Blood Count 7.2 K/mm3 (4.5-10.0)
[2022-03-08 19:35] LABS: Lactate Dehydrogenase 149 U/L (120-246)
[2022-03-13 10:58] LABS: Haptoglobin 154 mg/dL (43-212)
== END 2022-03-08 08:09 | disposition home or self-care (01) ==
LOC: ANHGOSHLAB 08:10
PROVIDERS: PCP Internal Medicine; Visit Provider Internal Medicine
DX: D64.9 Anemia, unspecified (principal)
CPT/HCPCS: 36415; 82728; 83010; 83615; 85025; 85046

== ENCOUNTER 2022-05-09 13:36 | Outpatient (CLI) | payer OTHER, SELFPAY ==
[2022-05-09 19:46] LABS: Immature Reticulocyte Fraction 13.5 % (3.0-15.9); Reticulocyte Hemoglobin Conten 33.7 pg (28.2-35.7); Reticulocyte Percent 1.53 % (0.7-4.3); Reticulocytes Absolute 0.08 B/L (32.2-175.7)
== END 2022-05-09 13:37 | disposition home or self-care (01) ==
LOC: ANHGOSHLAB 13:38
PROVIDERS: PCP Internal Medicine; Visit Provider Internal Medicine
DX: D64.9 Anemia, unspecified (principal)
CPT/HCPCS: 36415; 85046

== ENCOUNTER → 2022-05-18 10:19 | Outpatient (CLI) | payer OTHER, SELFPAY ==
--- NOTE | ~2022-05-18 | XR_ITS ---
XR lumbar spine 2-3V DATE: 05/18/2022 10:32 INDICATION: Low back pain for 6 weeks after heavy lifting TECHNIQUE: AP, lateral, coned lateral lumbosacral views COMPARISON: 07/2017 lumbar spine FINDINGS: Surgical clips, right upper quadrant, likely due to cholecystectomy. No fracture or bone destruction of the lumbar spine is evident. The lumbar pedicles are intact. Moderate degenerative disc disease at L1-2 through L4-5. Mild degenerative disc disease at L5-S1. The re is associated minimal retrolisthesis at L3-4. Primary lumbar spinal stenosis is not excluded. The sacroiliac joints are intact. IMPRESSION: Multilevel mild to moderate degenerative disc disease, associated minimal retrolisthesis at L3-4 Cannot exclude primary lumbar spinal stenosis Reviewed, dictated and finalized at location B. UNICATIONS MANAGER IMPRESSION: Multilevel mild to moderate degenerative disc disease, associated m inimal retrolisthesis at L3-4 Cannot exclude primary lumbar spinal stenosis
== END ==
PROVIDERS: PCP Internal Medicine; Visit Provider Clinical Nurse Specialist
DX: M54.50 Low back pain, unspecified (principal); M51.36 Other intervertebral disc degeneration, lumbar region
CPT/HCPCS: 72100

== ENCOUNTER → 2022-05-28 12:36 | Outpatient (CLI) | payer OTHER, SELFPAY ==
--- NOTE | ~2022-05-28 | MR_ITS ---
MRI of the lumbar spine Clinical History: Back pain Technique: Axial T2-weighted images, and sagittal T1-weighted, T2-weighted, and T2 fat-sat images wer e acquired. Findings: No fracture or subluxation of lumbar spine identified. Vertebral bodies maintain normal hei ght and alignment. No focal bone marrow signal abnormality seen. At L1-L2, there is no disc bulge or herniation. No spinal canal stenosis or neural foraminal narrowin g. At L2-L3, there is no disc bulge or herniation. No spinal canal stenosis or neural foraminal narrowin g. L3-L4, there is minimal disc bulge with a probable tiny inferior disc extrusion centrally. No spinal canal stenosis or neural foraminal narrowing. There is minimal facet joint degenerative change. At L4-L5, there is minimal disc bulge and minimal facet joint degenerative change. No shaheed spinal ca nal stenosis. There is mild bilateral neural foraminal narrowing. At L5-S1, there is a central to left paracentral disc extrusion, which mildly compresses the ventral thecal sac, and impinges the descending left-sided S1-S2 level nerve root. There is also severe left neural foraminal narrowing. Right neural foramen preserved. Paravertebral soft tissues are unremarkable. Impression: Large central to left paracentral disc extrusion L5-S1, with probable impingement of the descending l eft-sided S1-S2 level nerve root and severe left neural foraminal narrowing. Mild bilateral neural foraminal narrowing at L4-L5. Probable tiny inferior disc extrusion at L3-L4. No canal stenosis or neural foraminal narrowing at th is level. Reviewed, dictated and finalized at [facility]. D HAND Impression: Large central to left paracentral disc extrusion L5-S1, with probable impingeme nt of the descending left-sided S1-S2 level nerve root and severe left neural f oraminal narrowing. Mild bilateral neural foraminal narrowing at L4-L5. Probable tiny inferior disc extrusion at L3-L4. No canal stenosis or neural for aminal narrowing at this level.
== END ==
PROVIDERS: PCP Internal Medicine; Visit Provider Clinical Nurse Specialist
DX: M54.9 Dorsalgia, unspecified (principal); M51.27 Other intervertebral disc displacement, lumbosacral region
CPT/HCPCS: 72148

== ENCOUNTER 2022-07-13 14:47 | Outpatient (CLI) | payer OTHER, SELFPAY ==
[2022-07-13 15:02] LABS: Basophils Absolute Auto 0.1 K/mm3 (0.0-0.1); Basophils Percent Auto 0.6 % (0.2-1.2); Eosinophils Absolute Auto 0.4 K/mm3 (0-0.3); Eosinophils Percent Auto 4.5 % (0-4.4); Hematocrit 51.4 % (42.0-52.0); Hemoglobin 16.7 g/dL (14.0-18.0); Immature Granulocyte Absolute 0.07 K/mm3 (0.00-0.031); Immature Granulocyte Percent A 0.8 % (0-0.5); Immature Reticulocyte Fraction 18.9 % (3.0-15.9); Lymphocytes Absolute Auto 2.53 K/mm3 (0.9-3.2); Lymphocytes Percent Auto 29.4 % (18.3-44.2); Mean Corpuscular HGB Conc 32.5 g/dl (32-36); Mean Corpuscular Hemoglobin 28.5 pg (26-34); Mean Corpuscular Volume 87.9 fl (80-100); Mean Platelet Volume 8.7 fl (7.4-10.4); Monocytes Absolute Auto 0.8 K/mm3 (0.1-0.6); Monocytes Percent Auto 9.3 % (2.6-8.5); Neutrophils Absolute Auto 4.8 K/mm3 (1.3-6.7); Neutrophils Percent Auto 55.4 % (45.5-73.1); Platelet Count Result 260 k/mm3 (150-375); Red Blood Count 5.85 M/mm3 (4.6-6.20); Red Cell Distribution Width 14.8 % (11.5-14.5); Reticulocyte Hemoglobin Conten 33.6 pg (28.2-35.7); Reticulocyte Percent 1.81 % (0.7-4.3); Reticulocytes Absolute 0.11 B/L (32.2-175.7); White Blood Count 8.6 K/mm3 (4.5-10.0)
[2022-07-13 16:10] LABS: Alanine Aminotransferase 37 U/L (6-50); Alkaline Phosphatase 92 U/L (38-126); Anion Gap 9 mmol/L (8-16); Aspartate Amino Transferase 43 U/L (17-59); Bilirubin,Total 0.5 mg/dL (0.2-1.3); Blood Urea Nitrogen 12 mg/dL (9-20); Calcium 9.1 mg/dL (8.4-10.2); Carbon Dioxide 29 mmol/L (22-30); Chloride 103 mmol/L (98-107); Estimated Glomerular Filt Rate > 60; Glucose 94 mg/dL (65-110); Lactate Dehydrogenase 172 U/L (120-246); Potassium 4.3 mmol/L (3.4-5.0); Sodium 141 mmol/L (137-145)
[2022-07-13 16:14] LABS: Iron 72 ug/dL (49-181)
[2022-07-13 16:24] LABS: Percent Iron Saturation 15 % (20-50)
== END 2022-07-13 14:48 | disposition home or self-care (01) ==
LOC: ANHLAB 14:49
PROVIDERS: PCP Internal Medicine; Visit Provider Internal Medicine Hematology & Oncology
DX: D64.9 Anemia, unspecified (principal)
CPT/HCPCS: 36415; 80053; 82607; 82728; 83540; 83550; 83615; 85025; 85046

== ENCOUNTER 2022-08-13 10:44 | Outpatient (CLI) | payer OTHER, SELFPAY ==
[2022-08-13 12:45] LABS: IFOB Positive Control Positive; Immunochemical Fecal Occult Bl Positive (N)
== END 2022-08-13 10:45 | disposition home or self-care (01) ==
LOC: ANHLAB 10:47
PROVIDERS: PCP Internal Medicine; Visit Provider Internal Medicine Hematology & Oncology
DX: D64.9 Anemia, unspecified (principal)
CPT/HCPCS: 82274

== ENCOUNTER 2022-08-24 00:18 | Day surgery (SDC) | payer OTHER, SELFPAY ==
[2022-08-13 10:59] VITALS: BMI 36.7
[2022-08-24 07:10] VITALS: BP 142/94; PULSE 87; RESP 18; TEMP 36.3; O2SAT 98
[2022-08-24] MEDS: LACTATED RINGERS 1,000 ML 150 ML IV CONT (07:19)
--- NOTE | 2022-08-24 07:50 | PM.HPGS ---
History of Present Illness History of Present Illness Consent: Risks, benefits, and alternatives have been discussed and questions answered. Patient agrees to proceed with procedure. Chief complaint: family hx colon ca Narrative: Brock Ybarra is a 42 year old male here for first screening colonoscopy, paternal grandfather had colon cancer at 40's Review of Systems Constitutional: Constitutional: Denies headache(s) and Denies weakness Eyes: Eyes: Denies blurry vision ENT: Reports Normal hearing present, Denies headache(s) and Denies neck pain Cardiovascular: Cardiovascular: Denies chest pain and Denies dyspnea Respiratory: Respiratory: Denies dyspnea Gastrointestinal: Gastrointestinal: Reports no additional gastrointestinal complaints Genitourinary: Genitourinary: Denies dysuria Musculoskeletal: Musculoskeletal: Denies neck pain Integumentary/Breasts: Skin/Breast: Denies dry skin Neurologic: Reports Normal hearing present, Denies headache(s) and Denies weakness Psychiatric: Psychiatric: Denies anxiety Endocrine: Endocrine: Denies change in body appearance Hematologic/Lymphatic: Hematologic/Lymphatic: Denies easy bleeding Allergic/Immunologic: Allergic/Immunologic: Denies urticaria [facility] Past Medical History Medical History (Updated 07/24/22 @ 15:24 by Melanie Brennan, COOKER SULFATE-C) Anemia Anemia Atrial fibrillation with RVR Belching Chest pressure Chronic cholecystitis Chronic GERD Colon cancer screening Dysphagia Encounter for surgical aftercare following surgery on the digestive system Epigastric pain Gallbladder polyp Globus sensation Hospital discharge follow-up [facility] atrial fibrillation Obesity Right upper quadrant abdominal pain Screening for lipoid disorders Screening for metabolic disorder Surgical History Surgical History H/O left knee surgery (~05/05/19) H/O vasectomy (~2017) Hx laparoscopic cholecystectomy 12/29/21 Hx of wisdom tooth extraction Family History Family History Sibling Hypertension Grandparent Hypertension Social History Social History (Updated 05/18/22 @ 09:38 by Abena Gomez CMA) Social History: daily caffeine use- 1-3 cups of coffee/tea per day Smoking status: Never smoker Second hand tobacco smoke exposure: No Alcohol intake: current Drinks per week: 3 Alcohol use details: SOCIALLY Substance use: never Substance use type: does not use Lack of Food: Never True Current Housing: I Have Housing Concerned About Future Housing: No Difficulty Paying Gas/Electric Bills: No Difficulty Paying for Meds: No Currently Unemployed: No Education: Bachelor's Degree Difficulty w/ Childcare or Family Care: No Living arrangements: with family Additional living arrangements comments: Patient is and has two children- one male, one female Occupation/Education: occupation 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 Gender identity (if verbalized by the patient): Male Sexual Orientation (if Verbalized by the Patient): Straight or Heterosexual Spiritual care concerns: No Meds Home Medications and Allergies Home Medications Medication Instructions Recorded Confirmed Type aspirin 81 mg tablet,delayed 81 mg PO DAILY 11/14/21 08/13/22 History release mecobalamin (vitamin B12) 5,000 5,000 mcg PO EVERY OTHER DAY 03/08/22 08/13/22 History mcg disintegrating tablet cholecalciferol (vitamin D3) 1,250 1,250 mcg PO WEEKLY 05/18/22 08/13/22 History mcg (50,000 unit) capsule testosterone cypionate 100 mg/mL 90 mg IM WEEKLY 05/18/22 08/13/22 History intramuscular oil amitriptyline 25 mg tablet 25 mg PO QHS #30 tabs 06/20/22 08/13/22 Rx ferrous sulfate 325 mg (65 mg 325 mg PO DAILY 08/13/22 08/13/22 History iron) tablet Allergies Allergy/AdvReac Type Severity Reaction Status Date / T
[2022-08-24 08:13] VITALS: BP 129/81; PULSE 96; RESP 16; O2SAT 97
[2022-08-24 08:23] VITALS: BP 124/90; PULSE 86; RESP 16; O2SAT 98
[2022-08-24 08:33] VITALS: BP 127/83; PULSE 87; RESP 18; O2SAT 99
== END 2022-08-24 08:39 | disposition home or self-care (01) ==
PROVIDERS: PCP Internal Medicine; Visit Provider Internal Medicine Gastroenterology
PROC: 0DJD8ZZ Inspection of Lower Intestinal Tract, Via Natural or Artificial Opening Endoscopic (ICD-10-PCS; CPT 45378; principal; 2022-08-24 08:30)
DX: Z12.11 Encounter for screening for malignant neoplasm of colon (principal); K63.5 Polyp of colon; K64.8 Other hemorrhoids; Z80.0 Family history of malignant neoplasm of digestive organs; I48.91 Unspecified atrial fibrillation; D64.9 Anemia, unspecified; Z79.82 Long term (current) use of aspirin
CPT/HCPCS: 45385; 88305; J2704; J7120

== ENCOUNTER 2022-10-14 15:58 | Emergency (ER) | payer OTHER, SELFPAY ==
[2022-10-14 16:08] VITALS: BP 153/96; PULSE 93; RESP 16; TEMP 37.3; O2SAT 99
--- NOTE | 2022-10-14 16:08 | ED.URI ---
HPI - URI/Sore Throat General Chief Complaint: Upper Respiratory Infection Stated Complaint: headache; congestion; sore throat; drainage Time Seen by Provider: 10/14/22 16:20 Source: patient and RN notes reviewed Mode of arrival: ambulatory Limitations: no limitations History of Present Illness HPI Narrative: 42-year-old male presents with concern for 3-4 day history of headache, sinus drainage, hoarseness. He reports cough. He denies fever, aches, chills, sweats. Reports he has been taking Claritin for 2 days without relief. MD elicited complaint: sore throat Related Data Home Medications Medication Instructions Recorded Confirmed aspirin 81 mg tablet,delayed 81 mg PO DAILY 11/14/21 10/14/22 release mecobalamin (vitamin B12) 5,000 5,000 mcg PO EVERY OTHER DAY 03/08/22 10/14/22 mcg disintegrating tablet cholecalciferol (vitamin D3) 1,250 1,250 mcg PO WEEKLY 05/18/22 10/14/22 mcg (50,000 unit) capsule testosterone cypionate 100 mg/mL 90 mg IM WEEKLY 05/18/22 10/14/22 intramuscular oil ferrous sulfate 325 mg (65 mg 325 mg PO DAILY 08/13/22 10/14/22 iron) tablet Allergies Allergy/AdvReac Type Severity Reaction Status Date / Time No Known Allergies Allergy Verified 10/14/22 16:07 Review of Systems Review of Systems: CONSTITUTIONAL: Denies malaise, chills, sweats, or fever. EYES: Denies visual changes, redness, or discharge. ENT: Reports rhinorrhea, congestion, sore throat. Denies sinus pain, otalgia CARDIOVASCULAR: Denies chest pain, palpitations, or edema. RESPIRATORY: Reports cough. Denies dyspnea. GASTROINTESTINAL: Denies abdominal pain, nausea, vomiting, diarrhea SKIN: Denies rash or itching. MUSCULOSKELETAL: Denies myalgia. NEUROLOGIC: Denies headache. All systems reviewed & are unremarkable except as noted in HPI and below PMFSH Past Medical History Medical History (Updated 10/14/22 @ 16:36 by Audrey Arzate NP) Anemia Anemia Atrial fibrillation with RVR Belching Chest pressure Chronic cholecystitis Chronic GERD Colon cancer screening Dysphagia Encounter for surgical aftercare following surgery on the digestive system Epigastric pain Gallbladder polyp Globus sensation Hospital discharge follow-up [place] atrial fibrillation Obesity Right upper quadrant abdominal pain Screening for lipoid disorders Screening for metabolic disorder Surgical History Surgical History H/O left knee surgery (~05/05/19) H/O vasectomy (~2017) Hx laparoscopic cholecystectomy 12/29/21 Hx of wisdom tooth extraction Family History Family History Sibling Hypertension Grandparent Hypertension Social History Social History (Updated 05/18/22 @ 09:38 by Abena Gomez CMA) Social History: daily caffeine use- 1-3 cups of coffee/tea per day Smoking status: Never smoker Second hand tobacco smoke exposure: No Alcohol intake: current Drinks per week: 3 Alcohol use details: SOCIALLY Substance use: never Substance use type: does not use Lack of Food: Never True Current Housing: I Have Housing Concerned About Future Housing: No Difficulty Paying Gas/Electric Bills: No Difficulty Paying for Meds: No Currently Unemployed: No Education: Bachelor's Degree Difficulty w/ Childcare or Family Care: No Living arrangements: with family Additional living arrangements comments: Patient is and has two children- one male, one female Occupation/Education: occupation 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 There is no relevant family history pertinent to the presenting complaint Exam
== END 2022-10-14 16:44 | disposition home or self-care (01) ==
PROVIDERS: Emergency Provider Nurse Practitioner; PCP Internal Medicine
DX: J06.9 Acute upper respiratory infection, unspecified (principal); R21 Rash and other nonspecific skin eruption; I48.91 Unspecified atrial fibrillation; Z79.82 Long term (current) use of aspirin
CPT/HCPCS: 87081; 87880; 99213; G0463

== ENCOUNTER → 2023-01-22 11:03 | Outpatient (CLI) | payer OTHER, SELFPAY ==
--- NOTE | ~2023-01-22 | XR_ITS ---
EXAMINATION: XR chest 2V 01/22/2023 11:21 INDICATION: Covid 19 PROCEDURE: 2 view chest COMPARISON: 07/18/2020 FINDINGS: The lungs are clear. The cardiomediastinal silhouette is within normal limits. There are no pleural effusions. There is no pneumothorax suspected. IMPRESSION: 1: NO ACUTE CARDIOPULMONARY DISEASE. Reviewed, dictated and finalized at location L.
== END ==
PROVIDERS: PCP Internal Medicine; Visit Provider Internal Medicine
DX: U07.1 COVID-19 (principal); R05.9 Cough, unspecified
CPT/HCPCS: 71046

== ENCOUNTER 2023-03-08 15:42 | Outpatient (CLI) | payer OTHER, SELFPAY ==
[2023-03-08 15:56] LABS: Basophils Absolute Auto 0.1 K/mm3 (0.0-0.1); Basophils Percent Auto 0.9 % (0.2-1.2); Eosinophils Absolute Auto 0.3 K/mm3 (0-0.3); Eosinophils Percent Auto 3.6 % (0-4.4); Hematocrit 53.5 % (42.0-52.0); Hemoglobin 17.7 g/dL (14.0-18.0); Immature Granulocyte Absolute 0.07 K/mm3 (0.00-0.031); Immature Granulocyte Percent A 0.8 % (0-0.5); Lymphocytes Absolute Auto 2.86 K/mm3 (0.9-3.2); Lymphocytes Percent Auto 30.9 % (18.3-44.2); Mean Corpuscular HGB Conc 33.1 g/dl (32-36); Mean Corpuscular Hemoglobin 30.2 pg (26-34); Mean Corpuscular Volume 91.3 fl (80-100); Mean Platelet Volume 8.4 fl (7.4-10.4); Monocytes Absolute Auto 0.7 K/mm3 (0.1-0.6); Monocytes Percent Auto 7.6 % (2.6-8.5); Neutrophils Absolute Auto 5.2 K/mm3 (1.3-6.7); Neutrophils Percent Auto 56.2 % (45.5-73.1); Platelet Count Result 261 k/mm3 (150-375); Red Blood Count 5.86 M/mm3 (4.6-6.20); Red Cell Distribution Width 13.9 % (11.5-14.5); White Blood Count 9.3 K/mm3 (4.5-10.0)
[2023-03-08 16:30] LABS: Iron 99 ug/dL (49-181)
[2023-03-08 16:39] LABS: Percent Iron Saturation 26 % (20-50)
== END 2023-03-08 15:43 | disposition home or self-care (01) ==
PROVIDERS: PCP Internal Medicine; Visit Provider Internal Medicine Hematology & Oncology
DX: D64.9 Anemia, unspecified (principal)
CPT/HCPCS: 36415; 82728; 83540; 83550; 85025

== ENCOUNTER 2023-06-18 12:06 | Outpatient (CLI) | payer OTHER, SELFPAY ==
[2023-06-18 12:22] LABS: Basophils Absolute Auto 0.1 K/mm3 (0.0-0.1); Basophils Percent Auto 0.6 % (0.2-1.2); Eosinophils Absolute Auto 0.2 K/mm3 (0-0.3); Eosinophils Percent Auto 2.4 % (0-4.4); Hematocrit 52.7 % (42.0-52.0); Hemoglobin 17.5 g/dL (14.0-18.0); Immature Granulocyte Absolute 0.07 K/mm3 (0.00-0.031); Immature Granulocyte Percent A 0.8 % (0-0.5); Lymphocytes Absolute Auto 2.65 K/mm3 (0.9-3.2); Lymphocytes Percent Auto 31.4 % (18.3-44.2); Mean Corpuscular HGB Conc 33.2 g/dl (32-36); Mean Corpuscular Hemoglobin 29.9 pg (26-34); Mean Corpuscular Volume 89.9 fl (80-100); Mean Platelet Volume 8.2 fl (7.4-10.4); Monocytes Absolute Auto 0.5 K/mm3 (0.1-0.6); Monocytes Percent Auto 6.2 % (2.6-8.5); Neutrophils Percent Auto 58.6 % (45.5-73.1); Platelet Count Result 244 k/mm3 (150-375); Red Blood Count 5.86 M/mm3 (4.6-6.20); Red Cell Distribution Width 13.1 % (11.5-14.5); White Blood Count 8.4 K/mm3 (4.5-10.0)
[2023-06-18 16:26] LABS: Iron 114 ug/dL (49-181)
[2023-06-18 16:40] LABS: Percent Iron Saturation 30 % (20-50)
== END 2023-06-18 12:07 | disposition home or self-care (01) ==
LOC: ANHLAB 12:08
PROVIDERS: PCP Internal Medicine; Visit Provider Internal Medicine Hematology & Oncology
DX: D64.9 Anemia, unspecified (principal)
CPT/HCPCS: 36415; 82728; 83540; 83550; 85025

== ENCOUNTER 2023-09-13 09:46 | Outpatient (CLI) | payer OTHER, SELFPAY ==
[2023-09-13 10:02] LABS: Basophils Percent Auto 0.5 % (0.2-1.2); Eosinophils Absolute Auto 0.2 K/mm3 (0-0.3); Eosinophils Percent Auto 3.1 % (0-4.4); Hematocrit 50.6 % (42.0-52.0); Hemoglobin 16.7 g/dL (14.0-18.0); Immature Granulocyte Absolute 0.02 K/mm3 (0.00-0.031); Immature Granulocyte Percent A 0.3 % (0-0.5); Lymphocytes Absolute Auto 3.04 K/mm3 (0.9-3.2); Lymphocytes Percent Auto 41.4 % (18.3-44.2); Mean Platelet Volume 8.5 fl (7.4-10.4); Monocytes Absolute Auto 0.4 K/mm3 (0.1-0.6); Monocytes Percent Auto 5.7 % (2.6-8.5); Neutrophils Absolute Auto 3.6 K/mm3 (1.3-6.7); Platelet Count Result 226 k/mm3 (150-375); Red Blood Count 5.56 M/mm3 (4.6-6.20); Red Cell Distribution Width 13.2 % (11.5-14.5); White Blood Count 7.3 K/mm3 (4.5-10.0)
== END 2023-09-13 09:47 | disposition home or self-care (01) ==
LOC: ANHLAB 09:49
PROVIDERS: PCP Internal Medicine; Visit Provider Internal Medicine Hematology & Oncology
DX: D64.9 Anemia, unspecified (principal)
CPT/HCPCS: 36415; 85025

== ENCOUNTER 2023-10-29 08:34 | Outpatient (CLI) | payer OTHER, SELFPAY ==
--- NOTE | ~2023-10-29 | XR_ITS ---
XR chest 2V Ordering provider: Avel Messina DO History: 43 years Male with . URI wheezing for 1 week . Comparison: January 22, 2023 FINDINGS: MEDIASTINUM: The cardiac silhouette is not enlarged. LUNGS: No infiltrates, effusions or pneumothorax. OTHER: No free air under the diaphragm. IMPRESSION: No acute cardiopulmonary pathology. Reviewed, dictated and finalized at location A.
== END 2023-10-29 08:35 ==
LOC: GOSHIMG 08:35
PROVIDERS: PCP Internal Medicine; Visit Provider Internal Medicine
DX: R06.2 Wheezing (principal)
CPT/HCPCS: 71046

== ENCOUNTER 2024-01-31 12:14 | Outpatient (CLI) | payer OTHER, SELFPAY ==
[2024-01-31 12:26] LABS: Hematocrit 52.7 % (42.0-52.0); Hemoglobin 17.4 g/dL (14.0-18.0); Mean Corpuscular Hemoglobin 29.9 pg (26-34); Mean Corpuscular Volume 90.5 fl (80-100); Mean Platelet Volume 8.3 fl (7.4-10.4); Platelet Count Result 229 k/mm3 (150-375); Red Blood Count 5.82 M/mm3 (4.6-6.20); Red Cell Distribution Width 13.3 % (11.5-14.5); White Blood Count 7.8 K/mm3 (4.5-10.0)
[2024-01-31 13:22] LABS: Iron 124 ug/dL (49-181)
[2024-01-31 13:34] LABS: Percent Iron Saturation 31 % (20-50)
== END 2024-01-31 12:15 | disposition home or self-care (01) ==
LOC: ANHLAB 12:17
PROVIDERS: PCP Internal Medicine; Visit Provider Internal Medicine Hematology & Oncology
DX: D64.9 Anemia, unspecified (principal)
CPT/HCPCS: 36415; 82728; 83540; 83550; 85027

== ENCOUNTER 2024-05-25 11:54 | Outpatient (CLI) | payer OTHER, SELFPAY ==
[2024-05-25 12:07] LABS: Basophils Percent Auto 0.5 % (0.2-1.2); Eosinophils Absolute Auto 0.2 K/mm3 (0-0.3); Eosinophils Percent Auto 2.8 % (0-4.4); Hematocrit 50.2 % (42.0-52.0); Hemoglobin 16.5 g/dL (14.0-18.0); Immature Granulocyte Absolute 0.07 K/mm3 (0.00-0.031); Immature Granulocyte Percent A 0.9 % (0-0.5); Lymphocytes Absolute Auto 2.59 K/mm3 (0.9-3.2); Mean Corpuscular HGB Conc 32.9 g/dl (32-36); Mean Corpuscular Hemoglobin 29.8 pg (26-34); Mean Corpuscular Volume 90.6 fl (80-100); Mean Platelet Volume 8.3 fl (7.4-10.4); Monocytes Absolute Auto 0.6 K/mm3 (0.1-0.6); Monocytes Percent Auto 6.9 % (2.6-8.5); Neutrophils Absolute Auto 4.6 K/mm3 (1.3-6.7); Neutrophils Percent Auto 56.9 % (45.5-73.1); Platelet Count Result 230 k/mm3 (150-375); Red Blood Count 5.54 M/mm3 (4.6-6.20); Red Cell Distribution Width 13.1 % (11.5-14.5); White Blood Count 8.1 K/mm3 (4.5-10.0)
== END 2024-05-25 11:55 | disposition home or self-care (01) ==
LOC: ANHLAB 11:55
PROVIDERS: PCP Internal Medicine; Visit Provider Internal Medicine Hematology & Oncology
DX: D64.9 Anemia, unspecified (principal)
CPT/HCPCS: 36415; 85025